=== PATIENT | female | born 2000 | race Caucasian/White ===

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

== ENCOUNTER 2019-08-06 13:49 | Emergency (ER) | payer OTHER ==
--- NOTE | 2019-08-06 14:13 | ER Document Report ---
ED Medical Screen (RME) - General Chief Complaint: Vag Bleeding, +preg <12wks Stated Complaint: VAGINAL BLEEDING Time Seen by Provider: 08/06/19 14:09 Mode of Arrival: Ambulatory Information source: Patient Notes: 19-year-old female presented to ED for complaint of vaginal bleeding in early . She has been seen by INVESTIGATION OFFICER and had an ultrasound they told her she was about 5 weeks . Patient is alert oriented respirations regular nonlabored speaking in full sentences walks with even steady gait. She states she does have some mild cramping no nausea or vomiting she states her bleeding is not severe but it does have blood clots. I have greeted and performed a rapid initial assessment of this patient. A comprehensive ED assessment and evaluation of the patient, analysis of test results and completion of medical decision making process will be conducted by an additional ED providers. TRAVEL OUTSIDE OF THE [place] IN LAST 30 DAYS: No - Related Data Allergies/Adverse Reactions: No Known Allergies Allergy (Verified 12/10/18 11:32) Past Medical History Pulmonary Medical History: Denies: Hx Asthma, Hx Bronchitis Renal/ Medical History: Denies: Hx Peritoneal Dialysis Musculoskeltal Medical History: Denies Hx Arthritis Psychiatric Medical History: Comment Only: Hx Depression - anxiety Past Surgical History: Reports: Hx Appendectomy - 08/17/18, Hx Tonsillectomy - Immunizations Hx Diphtheria, Pertussis, Tetanus Vaccination: No Physical Exam - Vital signs Vitals: Temp Pulse Resp BP Pulse Ox 98.2 F 106 H 20 133/67 H 100 08/06/19 13:58 08/06/19 13:58 08/06/19 13:58 08/06/19 13:58 08/06/19 13:58 Course - Vital Signs Vital signs: Temp Pulse Resp BP Pulse Ox 98.2 F 106 H 20 133/67 H 100 08/06/19 13:58 08/06/19 13:58 08/06/19 13:58 08/06/19 13:58 08/06/19 13:58
[2019-08-06 14:48] LABS: ABSOLUTE LYMPHOCYTES (AUTO) 1.4 10^3/uL (0.5-4.7); ABSOLUTE MONOCYTES (AUTO) 0.7 10^3/uL (0.1-1.4); ABSOLUTE NEUT (AUTO) 3.2 10^3/uL (1.7-8.2); BASOPHILS % (AUTO) 0.5 % (0-2); EOSINOPHILS % (AUTO) 0.4 % (0-6); HEMOGLOBIN 14.5 g/dL (12.0-15.5); LYMPHOCYTES % (AUTO) 26.4 % (13-45); MEAN CORPUSCULAR HEMOGLOBIN 32.9 pg (27.0-33.4); MEAN CORPUSCULAR HGB CONC 34.4 g/dL (32.0-36.0); MEAN CORPUSCULAR VOLUME 96 fl (80-97); MONOCYTES % (AUTO) 12.8 % (3-13); PLATELET COUNT 263 10^3/uL (150-450); RED BLOOD COUNT 4.39 10^6/uL (3.72-5.28); RED CELL DISTRIBUTION WIDTH 12.2 % (11.5-14.0); SEGMENTED NEUTROPHILS % (AUTO) 59.9 % (42-78); TOTAL CELLS COUNTED % (AUTO) 100 %; WHITE BLOOD COUNT 5.4 10^3/uL (4.0-10.5)
[2019-08-06 14:52] LABS: APPEARANCE,URINE SLIGHTLY-CLOUDY; BILIRUBIN,URINE NEGATIVE (NEGATIVE); COLOR,URINE YELLOW; GLUCOSE, URINE NEGATIVE (NEGATIVE); KETONES,URINE NEGATIVE (NEGATIVE); LEUKOCYTE ESTERASE,URINE NEGATIVE (NEGATIVE); NITRITE,URINE NEGATIVE (NEGATIVE); PROTEIN,URINE NEGATIVE (NEGATIVE); URINE SPECIFIC GRAVITY 1.027; UROBILINOGEN,URINE NEGATIVE mg/dL (<2.0)
[2019-08-06 15:14] LABS: ALBUMIN 4.5 g/dL (3.5-5.0); ALKALINE PHOSPHATASE 70 U/L (38-126); ANION GAP 7 (5-19); ASPARTATE AMINO TRANSFERASE 26 U/L (14-36); BILIRUBIN,TOTAL 0.7 mg/dL (0.2-1.3); BLOOD UREA NITROGEN 12 mg/dL (7-20); CALCIUM 9.3 mg/dL (8.4-10.2); CARBON DIOXIDE 27 mmol/L (22-30); CHLORIDE 104 mmol/L (98-107); GLUCOSE 84 mg/dL (75-110); TOTAL PROTEIN 7.4 g/dL (6.3-8.2)
--- NOTE | 2019-08-06 15:23 | ER Document Report ---
ED General - General Chief Complaint: Vag Bleeding, +preg <12wks Stated Complaint: VAGINAL BLEEDING Time Seen by Provider: 08/06/19 14:09 Mode of Arrival: Ambulatory TRAVEL OUTSIDE OF THE [place] IN LAST 30 DAYS: No - HPI Notes: Patient is a 19-year-old female G1, P0 approximately 6 weeks who presents complaining of vaginal bleeding that began today with occ pelvic crampi ng. Patient states that she did have an ultrasound performed recently and was told that she was 5 weeks by [employer]. She is otherwise able to eat and drink without difficulty. She is urinating normally and having normal bowel movements. No other vaginal odor or discharge. Denies drug allergies. She currently does not have any pain or discomfort. Denies any headache, fever, URI, sore throat, chest pain, palpitations, syncope, cough, shortness of breath, wheeze, dyspnea, abdominal pain, nausea/vomiting/diarrhea, urinary retention, dysuria, hematuria, or rash. - Related Data Allergies/Adverse Reactions: No Known Allergies Allergy (Verified 12/10/18 11:32) Past Medical History - General Information source: Patient - Social History Smoking Status: Unknown if Ever Smoked Chew tobacco use (# tins/day): No Frequency of alcohol use: None Drug Abuse: None Family History: Reviewed & Not Pertinent Patient has suicidal ideation: No Patient has homicidal ideation: No Pulmonary Medical History: Denies: Hx Asthma, Hx Bronchitis Renal/ Medical History: Denies: Hx Peritoneal Dialysis Musculoskeletal Medical History: Denies Hx Arthritis Psychiatric Medical History: Comment Only: Hx Depression - anxiety Past Surgical History: Reports: Hx Appendectomy - 08/17/18, Hx Tonsillectomy - Immunizations Hx Diphtheria, Pertussis, Tetanus Vaccination: No Review of Systems - Review of Systems -: Yes All other systems reviewed and negative Physical Exam - Vital signs Vitals: Temp Pulse Resp BP Pulse Ox 98.2 F 106 H 20 133/67 H 100 08/06/19 13:58 08/06/19 13:58 08/06/19 13:58 08/06/19 13:58 08/06/19 13:58 - Notes Notes: PHYSICAL EXAMINATION: GENERAL: Well-appearing, well-nourished and in no acute distress. HEAD: Atraumatic, normocephalic. EYES: Pupils equal round and reactive to light, extraocular movements intact, sclera anicteric, conjunctiva are normal. ENT: Nares patent and without discharge. oropharynx clear without exudates. No tonsilar hypertrophy or erythema. Moist mucous membranes. NECK: Normal range of motion, supple without lymphadenopathy LUNGS: Breath sounds clear to auscultation bilaterally and equal. No wheezes rales or rhonchi. HEART: Regular rate and rhythm without murmurs, rubs, gallops. ABDOMEN: Soft, nontender, nondistended abdomen. No guarding, no rebound. Normal bowel sounds present. No CVA tenderness bilaterally. Musculoskeletal: FROM to passive/active. Strength 5+/5. Extremities: No cyanosis, clubbing, or edema b/l. Peripheral pulses 2+. Capillary refill less than 3 seconds. NEUROLOGICAL: Cranial nerves grossly intact. Normal speech, normal gait. Normal sensory, motor exams PSYCH: Normal mood, normal affect. SKIN: Warm, Dry, normal turgor, no rashes or lesions noted. Course - Re-evaluation Re-evalutation: 08/06/19 16:16 Patient is an afebrile, well-hydrated, 19-year-old female who presents to the ED with bleeding in early and possible early intrauterine . Vitals are acceptable without any significant tachycardia, tachypnea, or hypoxia. PE is otherwise unremarkable. CBC, CMP unremarkable for acute pathology. HCG at 6499. See TVUS. UA unremarkable. Patient is nontoxic- appearing is tolerating p.o. without any difficulties. No other labs or imaging warranted at this time based on H&P. Low suspicion/risk for acute appendicitis, bowel obstruction, acute cholecystitis, acute cholangitis, perforated diverticulitis, incarcerated hernia, pancreatitis, perforated ulcer, peritonitis, sepsis, pelvic inflammatory disease, ectopic , tubo-ovar shonda abscess, ovarian torsion, or other systemic emergent condition at this time. Patient is aware that her condition can change from initial presentation and she needs to monitor symptoms closely and seek medical attention if any acute changes. Recheck HCG in 2-3 days, may need repeat US next week as well. Conservative measures otherwise for symptoms. Recheck with your PCM/OBGYN in 3- 5 days. Return to the ED with any worsening/concerning symptoms otherwise as reviewed in discharge. Patient is in agreement. - Vital Signs Vital signs: Temp Pulse Resp BP Pulse Ox 98.2 F 106 H 20 133/67 H 100 08/06/19 13:58 08/06/19 13:58 08/06/19 13:58 08/06/19 13:58 08/06/19 13:58 - Laboratory Result Diagrams: 08/06/19 14:30 08/06/19 14:30 Laboratory results interpreted by me: 08/06/19 08/06/19 14:30 14:30 Beta HCG, Quant 6499.70 H Urine Blood LARGE H Urine Ascorbic Acid 20 H Discharge - Discharge Clinical Impression: Bleeding in early Condition: Stable Disposition: HOME, SELF-CARE Additional Instructions: You should have your hormone level rechecked in 2 to 3 days. Consider repeat imaging in 7 to 10 days. This can be done with your OBGYN or the health department. Maintain fluid intake Proper hygienic technique Keep the skin clean Tylenol/ibuprofen as needed F/u with your PCM/OBGYN in 3-5 days for a recheck Return to the ED with any development of ROMAN/fever, trouble with vision, eye redness, worsening pain, urethral discharge, urinary retention, blood in the urine, flank pain, abdominal pain, n/v, Chest Pain, shortness of breath, joint pains, trouble breathing, or any other worsening/concerning symptoms as needed otherwise. Forms: Elevated Blood Pressure, Follow-Up Laboratory Testing [facility]NO [facility] - Follow up as needed [facility] [Provider Group] - Follow up as needed
--- NOTE | 2019-08-06 16:14 | RADIOLOGY REPORT (SQ) ---
EXAM DESCRIPTION: U/S OB TRANSVAGINAL W/O DOP COMPLETED DATE/TIME: 08/06/2019 3:12 pm REASON FOR STUDY: vaginal bleeding COMPARISON: None. TECHNIQUE: Transvaginal static and realtime grayscale images acquired of the pelvis. Additional emmanuel cted spectral and color Doppler images recorded. All images stored on PACs. bHCG: Not available. CLINICAL AGE: 10 weeks LIMITATIONS: None. FINDINGS: UTERUS: No masses. No anomalies. GESTATIONAL SAC: Normal shape. YOLK SAC: Yes. POLE: None present. RIGHT ADNEXA: Normal ovary with normal vascular flow. No adnexal free fluid. No adnexal masses. LEFT ADNEXA: Normal ovary with normal vascular flow. No adnexal free fluid. No adnexal masses. FREE FLUID: None. OTHER: No other significant finding. IMPRESSION: POSSIBLE EARLY INTRAUTERINE . BHCG LEVEL NOT AVAILABLE FOR CORRELATION WITH US FINDINGS. CONSIDER F/U BHCG AND/OR ULTRASOUND FOR VERIFICATION AND TO EXCLUDE ECTOPIC . Trimester of : First trimester - 0 to 13 weeks. TECHNICAL DOCUMENTATION: JOB ID: [id number] [employer]- All Rights Reserved Reading location - IP/workstation name: [email or web address]
[2019-08-06 16:48] VITALS: BP 100/62
== END 2019-08-06 16:46 | disposition home or self-care (01) ==
LOC: ER 13:49
DX: O20.9 Hemorrhage in early pregnancy, unspecified (principal); Z3A.01 Less than 8 weeks gestation of pregnancy
CPT/HCPCS: 36415; 76817; 80053; 81001; 84702; 85025; 86900; 86901; 99284

== ENCOUNTER 2019-08-07 17:33 | Emergency (ER) | payer OTHER ==
[2019-08-07 18:35] VITALS: BP 144/83
== END 2019-08-07 19:45 | disposition left against medical advice (07) ==
LOC: ER 17:33
DX: Z53.21 Procedure and treatment not carried out due to patient leaving prior to being seen by health care provider (principal); N93.9 Abnormal uterine and vaginal bleeding, unspecified

== ENCOUNTER → 2019-11-15 | Outpatient (CLI) | payer MEDICAID ==
--- NOTE | 2019-11-15 14:43 | RADIOLOGY REPORT (SQ) ---
EXAM DESCRIPTION: U/S [id number] TRNABD 1GES W/ODOP COMPLETED DATE/TIME: 11/15/2019 2:23 pm REASON FOR STUDY: Z34.81 ENCOUNTER FOR SUPRVSN OF NORMAL , FIRST TRIMESTER Z34.81 ENCOUNTE R FOR SUPRVSN OF NORMAL , FIRST TRIM COMPARISON: 08/06/2019 TECHNIQUE: Transvaginal static and realtime grayscale images acquired of the pelvis. Additional emmanuel cted spectral and color Doppler images recorded. All images stored on PACs. bHCG: Not available. CLINICAL DATES: LMP 09/12/2019. 9 weeks 1 day. LIMITATIONS: None. FINDINGS: FETUS: Single Living intrauterine . ULTRASOUND EGA: 6 weeks 6 days ULTRASOUND KOURTNEY: 07/04/2020 EFW: Not applicable less than 20 weeks. CRL: 0.85 cm FHR: 133 beats per minute. SURVEY: No visualized anomalies. AMNIOTIC FLUID: Adequate amount. PLACENTA: Not yet developed due to early gestation. SUBCHORIONIC BLEED: Yes SIZE OF BLEED: 1.3 x 0.7 x 0.3 cm UTERUS: No masses. No anomalies. CERVICAL LENGTH: 1.7 cm Closed. RIGHT ADNEXA: Normal ovary with normal vascular flow. 2.4 x 1.8 x 1.6 cm No adnexal free fluid. No adnexal masses. LEFT ADNEXA: Normal ovary with normal vascular flow. 3.7 x 3.6 x 1.9 cm No adnexal free fluid. No adnexal masses. FREE FLUID: Trace OTHER: No other significant finding. IMPRESSION: LIVING INTRAUTERINE . EGA 6 weeks 6 days. Trimester of : First trimester - 0 to 13 weeks. TECHNICAL DOCUMENTATION: JOB ID: [id number]- All Rights Reserved rev-03/18 Reading location - IP/workstation name: [email or web address]
== END ==
LOC: RAD 13:44
PROVIDERS: ATTEND Midwife
DX: Z34.81 Encounter for supervision of other normal pregnancy, first trimester (principal)
CPT/HCPCS: 76801

== ENCOUNTER 2020-06-20 15:05 | Outpatient (CLI) | payer MEDICAID ==
[2020-06-20 16:20] LABS: APPEARANCE,URINE SLIGHTLY-CLOUDY; BILIRUBIN,URINE NEGATIVE (NEGATIVE); COLOR,URINE STRAW; GLUCOSE, URINE NEGATIVE (NEGATIVE); KETONES,URINE NEGATIVE (NEGATIVE); LEUKOCYTE ESTERASE,URINE NEGATIVE (NEGATIVE); NITRITE,URINE NEGATIVE (NEGATIVE); PROTEIN,URINE NEGATIVE (NEGATIVE); URINE SPECIFIC GRAVITY 1.005; UROBILINOGEN,URINE NEGATIVE mg/dL (<2.0)
[2020-06-20 16:37] LABS: URINE AMPHETAMINES SCREEN NEGATIVE; URINE BARBITURATES SCREEN NEGATIVE; URINE BENZODIAZEPINES SCREEN NEGATIVE; URINE COCAINE SCREEN NEGATIVE; URINE MARIJUANA (THC) SCREEN NEGATIVE; URINE METHADONE SCREEN NEGATIVE; URINE PHENCYCLIDINE SCREEN NEGATIVE
--- NOTE | 2020-06-20 19:35 | Non Stress Test Report ---
Non Stress Test Datetime Report Generated by CPN: 06/20/2020 19:34 DEMOGRAPHIC EGA NST: 38.0 INDICATION Indication for Study (NST) Other: IUP at 38.0; Not in Labor VITAL SIGNS Temperature - NST: 98.2 Pulse - NST: 100 RESP - NST: 18 NBPSYS NST: 119 NBPDIA NST: 66 URINE RESULTS Urine Ketones - NST: Positive MONITORING Monitor Explained: Monitor Explained; Test Explained; Patient Verbalized Understanding Time on Monitor: 06/20/2020 15:52 Time off Monitor: 06/20/2020 16:47 NST Duration: 55 NST INTERVENTIONS NST Interventions: PO Hydration Physician Notified NST: P. Correa, CNM BABY A: [id number] BABY A Movement : Present Contraction Frequency : x1 FHR Baseline : 125 Accelerations : 15X15 Decelerations : None Variability : Moderate 6-25bpm NST Review: Meets Criteria for Reactive NST NST Review and Verified By : Kaylie Camp RNC NST Results: Reactive NST REPORT Report Trigger: Send Report
== END 2020-06-20 16:55 | disposition home or self-care (01) ==
LOC: LC 15:05
PROVIDERS: ATTEND Obstetrics & Gynecology Gynecology
DX: O47.1 False labor at or after 37 completed weeks of gestation (principal); Z3A.38 38 weeks gestation of pregnancy
CPT/HCPCS: 59025; 80307; 81005; 84112

== ENCOUNTER 2020-07-01 09:20 | Inpatient (IN) | payer MEDICAID ==
[2020-07-01 10:13] LABS: APPEARANCE,URINE CLEAR; BILIRUBIN,URINE NEGATIVE (NEGATIVE); COLOR,URINE YELLOW; GLUCOSE, URINE NEGATIVE (NEGATIVE); KETONES,URINE NEGATIVE (NEGATIVE); LEUKOCYTE ESTERASE,URINE NEGATIVE (NEGATIVE); NITRITE,URINE NEGATIVE (NEGATIVE); PROTEIN,URINE NEGATIVE (NEGATIVE); URINE SPECIFIC GRAVITY 1.015; UROBILINOGEN,URINE NEGATIVE mg/dL (<2.0)
--- NOTE | 2020-07-01 10:19 | Admission Physical ---
Datetime Report Generated by CPN: 07/01/2020 10:18 CURRENT ADMISSION Chief Complaint: Suspected Ruptured Membranes Admit Impression : Term, Intrauterine ; Ruptured Membranes Admit Plan: Admit to Unit; Initiate Labor Protocol ALLERGIES Medication Allergies: No Medication Allergies: No Known Allergies (07/01/2020) Latex: No Latex Allergies OBSTETRICAL HISTORY EDC: 07/04/2020 00:00 : 2 Para: 0 Term: 0 : 0 SAB: 1 IAB: 0 Livin PHYSICAL EXAM General: Normal HEENT: Normal Neurologic: Normal Thyroid: Normal Heart: Normal Lungs: Normal Breast: Normal Back: Normal Abdomen: Normal Genitourinary Exam: Normal Extremities: Normal DTRs: Normal Pelvic Type: Adequate Vital Signs: Reviewed; Within Normal Limits MEMBRANES Membranes: Ruptured Amniotic Fluid Color: Clear FETUS A EGA: 39.4 Monitoring: External US FHR- Baseline: 130 Variability: Moderate 6-25bpm Accelerations: 15X15 Decelerations: None FHR Category: Category I Admit Comment: at 39.4 wks presents c/o SROM this morning. +Actiprom result. GBS negative. Pt doing well, remains comfortable with irregular contractions. Plan to admit to unit, pt may ambulate for an hour or so, plan of care reviewed w/ patient. If no cervical change is made, then may augment with Pitocin. EFW via [place] . Attending MD today is Dr Rosales. INFORMED CONSENT Assignment: Meeta Rosales MD Signature: with User ID: [email or web address] : with User ID: Bailey
[2020-07-01] MEDS ORDERED: RINGERS SOLUTION,LACTATED 1,000 ML IV ONE (10:21)
[2020-07-01] MEDS ORDERED: RINGERS SOLUTION,LACTATED 1,000 ML IV PRN (10:21)
[2020-07-01 10:36] LABS: URINE AMPHETAMINES SCREEN NEGATIVE; URINE BARBITURATES SCREEN NEGATIVE; URINE BENZODIAZEPINES SCREEN NEGATIVE; URINE COCAINE SCREEN NEGATIVE; URINE MARIJUANA (THC) SCREEN NEGATIVE; URINE METHADONE SCREEN NEGATIVE; URINE PHENCYCLIDINE SCREEN NEGATIVE
[2020-07-01 11:04] LABS: ABSOLUTE LYMPHOCYTES (AUTO) 1.4 10^3/uL (0.5-4.7); ABSOLUTE MONOCYTES (AUTO) 1.3 10^3/uL (0.1-1.4); ABSOLUTE NEUT (AUTO) 7.7 10^3/uL (1.7-8.2); BASOPHILS % (AUTO) 0.3 % (0-2); EOSINOPHILS % (AUTO) 0.2 % (0-6); HEMATOCRIT 35.4 % (36.0-47.0); HEMOGLOBIN 12.2 g/dL (12.0-15.5); LYMPHOCYTES % (AUTO) 13.5 % (13-45); MEAN CORPUSCULAR HEMOGLOBIN 30.7 pg (27.0-33.4); MEAN CORPUSCULAR HGB CONC 34.4 g/dL (32.0-36.0); MEAN CORPUSCULAR VOLUME 89 fl (80-97); MONOCYTES % (AUTO) 12.1 % (3-13); PLATELET COUNT 281 10^3/uL (150-450); RED BLOOD COUNT 3.97 10^6/uL (3.72-5.28); SEGMENTED NEUTROPHILS % (AUTO) 73.9 % (42-78); TOTAL CELLS COUNTED % (AUTO) 100 %; WHITE BLOOD COUNT 10.5 10^3/uL (4.0-10.5)
[2020-07-01] MEDS ORDERED: MAG HYDROX/AL HYDROX/SIMETH SUSP 30 ML UDCUP PO ONE (12:02)
[2020-07-01] MEDS ORDERED: MAG HYDROX/AL HYDROX/SIMETH SUSP 30 ML UDCUP ONE (12:03)
[2020-07-01] MEDS ORDERED: LIDOCAINE 1% INJ-PF (10 MG/ML) 30 ML SDV ONE (12:21)
[2020-07-01] MEDS ORDERED: OXYTOCIN/0.9 % SODIUM CHLORIDE 30 UNIT/500 ML RTUINJ ONE (12:21)
[2020-07-01] MEDS ORDERED: MISOPROSTOL 0.2 MG TABLET ONE (12:21)
[2020-07-01] MEDS ORDERED: OXYTOCIN 10 UNIT/ML VIAL ONE (12:21)
[2020-07-01] MEDS ORDERED: OXYTOCIN/0.9 % SODIUM CHLORIDE 30 UNIT/500 ML RTUINJ IV PRN (12:24)
--- NOTE | 2020-07-01 12:59 | L&D Progress Notes ---
PROGRESS NOTES Datetime Report Generated by CPN: 07/01/2020 12:58 PROGRESS NOTE Impression: Reassuring Heart Rate Plan: Augmentation Vital Signs : Reviewed; Within Normal Limits Comment: After ambulating for an hour, contraction pattern remains mild and irregular. Plan to start Pitocin to augment contractions. Pt also w/ a hx of 60 lb weight gain this . Reviewed with patient her increased risk of a shoulder dystocia and possible of needing a section for delivery. Questions answered and pt did verbalize understanding of the risk. Pt may have an epidural if she desires LAST VAGINAL EXAM-NURSING Nursing Exam Dilitation: 1.0 Nursing Exam Effacement: 50 Nursing Exam Station: -3 MEMBRANES Membranes: Ruptured Amniotic Fluid Color: Clear FETUS A FHR - Baseline: 135 Monitoring: External US FHR Category: Category I SIGNATURE SIGNATURE: [id number];[id number] Assignment: Meeta Rosales MD Signature: with User ID: [email or web address] : with User ID: [email or web address]
[2020-07-01] MEDS ORDERED: NALBUPHINE HCL INJ 10 MG/1 ML AMPULE INJ ONE (16:22)
[2020-07-01] MEDS ORDERED: NALBUPHINE HCL INJ 10 MG/1 ML AMPULE ONE (16:22)
[2020-07-01] MEDS ORDERED: PROMETHAZINE HCL INJ 25 MG/1 ML VIAL IV ONE (16:22)
[2020-07-01] MEDS ORDERED: PROMETHAZINE HCL INJ 25 MG/1 ML VIAL ONE (16:22)
--- NOTE | 2020-07-01 16:26 | L&D Progress Notes ---
PROGRESS NOTES Datetime Report Generated by CPN: 07/01/2020 16:26 PROGRESS NOTE Impression: Reassuring Heart Rate Procedures: Sterile Vag Exam Procedures- Other: AROM of forbag Plan: Continue Present Management; Augmentation Vital Signs : Reviewed; Within Normal Limits Comment: Pitocin infusing, pt now becoming uncomfortable, VE loose 1/90/-1 w/ palpable forbag. AROM of forbag. Moderate blood-tinged clear fluid. Pt may have IV pain medication, then plan epidural w/ further cervical change. Attending MD is Dr Rosales LAST VAGINAL EXAM-NURSING Nursing Exam Dilitation: 1.0 Nursing Exam Effacement: 90 Nursing Exam Station: -1 Nursing Exam Contractions: Switching from EFM to WILIAM MEMBRANES Membranes: Ruptured Amniotic Fluid Color: Clear FETUS A FHR - Baseline: 130 Monitoring: External US Variability: Moderate 6-25bpm Accelerations: 15X15 Decelerations: None FHR Category: Category I SIGNATURE SIGNATURE: [id number];[id number] Assignment: Meeta Rosales MD Signature: with User ID: Bailey : with User ID: Bailey
[2020-07-01] MEDS ORDERED: FENTANYL/BUPIVACAINE/NS/PF 300 MCG/150 ML RTUINJ EPI ONE (17:04)
[2020-07-01] MEDS ORDERED: EPHEDRINE SULFATE INJ 50 MG/1 ML AMPULE ONE (17:04)
[2020-07-01] MEDS ORDERED: ROPIVACAINE HCL 0.2% INJ/PF (2 MG/ML) 20 ML SDV ONE (17:04)
[2020-07-02] MEDS ORDERED: NA PHOS,M-B/NA PHOS,DI-BA (ADULT) 133 ML ENEMA PR PRN (01:13)
[2020-07-02] MEDS ORDERED: MEASLES,MUMPS&RUBELLA VACC/PF 0.5 ML VIAL SUBCUT PRN (01:13)
[2020-07-02] MEDS ORDERED: DIPH/PERTUSS(ACELL)/TETANUS VAC/PF 0.5 ML SYR (>=10YO) IM PRN (01:13)
[2020-07-02] MEDS ORDERED: PROMETHAZINE HCL 25 MG SUPP.RECT PR PRN (01:13)
[2020-07-02] MEDS ORDERED: PROMETHAZINE HCL INJ 25 MG/1 ML VIAL IV PRN (01:13)
[2020-07-02] MEDS ORDERED: ZOLPIDEM TARTRATE 5 MG TABLET PO PRN (01:13)
[2020-07-02] MEDS ORDERED: ACETAMINOPHEN WITH CODEINE #3 TABLET PO PRN (01:13)
[2020-07-02] MEDS ORDERED: OXYTOCIN/0.9 % SODIUM CHLORIDE 30 UNIT/500 ML RTUINJ IV PRN (01:13)
[2020-07-02] MEDS ORDERED: DIBUCAINE 1% OINTMENT 28 GM TP PRN (01:13)
[2020-07-02] MEDS ORDERED: BENZOCAINE/MENTHOL AEROSOL SPRAY 56 ML TOP PRN (01:13)
[2020-07-02] MEDS ORDERED: PSEUDOEPHEDRINE HCL 30 MG TABLET PO PRN (01:13)
[2020-07-02] MEDS ORDERED: ACETAMINOPHEN 650 MG SUPP.RECT PR PRN (01:13)
[2020-07-02] MEDS ORDERED: MAGNESIUM HYDROXIDE SUSP 30 ML UDCUP PO PRN (01:13)
[2020-07-02] MEDS ORDERED: DIPHENHYDRAMINE HCL 25 MG CAPSULE PO PRN (01:13)
[2020-07-02] MEDS ORDERED: GLYCERIN/WITCH HAZEL LEAF 1 EACH MED..WIPE TP PRN (01:13)
[2020-07-02] MEDS ORDERED: PROMETHAZINE HCL 25 MG TABLET PO PRN (01:13)
[2020-07-02] MEDS ORDERED: IBUPROFEN 800 MG TABLET ONE (01:43)
--- NOTE | 2020-07-02 02:15 | Delivery Summary ---
Del Sum A-C Datetime Report Generated by CPN: 07/02/2020 02:15 DELIVERY PERSONNEL DELIVERY PERSONNEL: [id number] Delivery Doctor:: Meeta Rosales MD Labor and Delivery Nurse:: Nisreen Ramirez RNwool tamper Nurse:: MADINA Rubio First Assistant/MARKET BASKET MAKER: iV Hornebonie, First Assistant/MARKET BASKET MAKER: Sasha Tobar, STEREO OPERATOR MATERNAL INFORMATION Delivery Anesthesia: Epidural Medications After Delivery: Pitocin 30 Units in 500ml NS/D5W Estimated Blood Loss (ml): 200 Delivery QBL: 200 Maternal Complications: None LABOR SUMMARY EDC: 07/04/2020 00:00 No. Babies in Womb: 1 Attempted: No Labor Anesthesia: Epidural LABOR INFORMATION Reason for Induction: Premature Rupture of Membranes Onset of Labor: 07/01/2020 19:25 Complete Dilatation: 07/01/2020 23:27 Oxytocin: Induction Group B Beta Strep: Negative Antibiotics # of Doses: n/a Name of Antibiotic Given: n/a Steroids Given: None Reason Steroids Not Administered: Not Applicable MEMBRANES Membranes Rupture Method: Spontaneous Rupture of Membranes: 07/01/2020 03:00 Length of Rupture (hr): 22.05 Amniotic Fluid Color: Clear Amniotic Fluid Amount: Small Amniotic Fluid Odor: Normal STAGES OF LABOR Stage 1 hr: 4 Stage 1 min: 2 Stage 2 hr: 1 Stage 2 min: 36 Stage 3 hr: 0 Stage 3 min: 4 Total Time in Labor hr: 5 Total Time in Labor min: 42 VAGINAL DELIVERY Episiotomy: None Laceration #1: None Laceration Extension #1: N/A Laceration Repair: Not Applicable Sponge Count Correct: Yes Sharps Count Correct: Yes CSECTION DELIVERY Primary Indication: N/A Secondary Indication: N/A CSection Incidence: N/A Labor: N/A Elective: N/A CSection Incision: N/A BABY A INFORMATION Infant Delivery Date/Time: 07/02/2020 01:03 Method of Delivery: Vaginal Nurse Controlled Delivery: No Born in Route : No : N/A Forceps: N/A Vacuum Extraction: N/A Shoulder Dystocia : No PRESENTATION/POSITION BABY A Presentation: Cephalic Cephalic Presentation: Vertex Vertex Position: Left Occipital Anterior Breech Presentation: N/A PLACENTA INFORMATION BABY A Placenta Delivery Time : 07/02/2020 01:07 Placenta Method of Delivery: Spontaneous Placenta Status: Delivered SCORES BABY A Heart Rate 1 min: >100 bpm Resp Effort 1 min: Good Cry Reflex Irritability 1 min: Cough or Sneeze or Pulls Away Muscle Tone 1 min: Active Motion Color 1 min: Body [place], Extremities Blue Resuscitation Effort 1 min: Tactile Stimulation SCORE 1 MIN: 9 Heart Rate 5 min: >100 bpm Resp Effort 5 min: Good Cry Reflex Irritability 5 min: Cough or Sneeze or Pulls Away Muscle Tone 5 min: Active Motion Color 5 min: Body [place], Extremities Blue Resuscitation Effort 5 min: Tactile Stimulation SCORE 5 MIN: 9 INFANT INFORMATION BABY A Gestational Age at Delivery: 39.0 Gestational Status: Full Term- 39- 40.6 Weeks Infant Outcome : Liveborn Condition : Stable Sex: Male IDENTIFICATION BABY A Infant Verification Date/Time: 07/02/2020 01:08 ID Band Number: [id number] Mother's Name Verified: Yes RN Verifying Infant: Mirna Andrew, JORJE Additional Verifying Personnel: Margot Luis RN WEIGHT/LENGTH BABY A Birthweight (gm): 3920 Weight (lb): 8 Infant Weight (oz): 10 Infant Length (in): 20.00 Length (cm): 50.80 CORD INFORMATION BABY A No. Cord Vessels: 3 Nuchal Cord : N/A Cord Blood Taken: Yes-For Eval (Mom's Blood Type - or O+) Infant Suction: Mouth; Nose ASSESSMENT BABY A Infant Complications: None Physical Findings at Delivery: Molding of the Head Respirations: Appears Normal Instructor Traffic Safety/ALS Called : No Care By: D Bellavance RN Transferred To: Remains with Mother BABY B INFORMATION : N/A SIGNATURES Signature: with User ID: Alexandria
--- NOTE | 2020-07-02 02:52 | Birth Certificate Data ---
Cert Data Datetime Report Generated by CPN: 07/02/2020 02:52 CERTIFICATE DATA 47a. Care: Yes (06/20/2020 15:56:Debbi Dunn RN) 48a. Number of Prev Live Births: 0 (06/20/2020 15:56:Debbi Dunn RN) 48b. Now Livin (06/20/2020 15:56:Debbi Dunn RN) 48c. Live Births Now : 0 (06/20/2020 15:56: system process) 48e. Losses: 1 (06/20/2020 15:56:Debbi Dunn RN) RISK FACTORS IN THIS 49a. Diabetes: No (06/20/2020 15:56:Debbi Dunn RN) 49b. Hypertension: No (06/20/2020 15:56:Debbi Dunn RN) 49c. Previous Births: 0 (06/20/2020 15:56:Debbi Dunn RN) 49d. Stillborns: No (06/20/2020 15:56:Debbi Dunn RN) 49d. IUGR: No (06/20/2020 15:56:Debbi Dunn RN) 49e. Infertility Treatment: No (06/20/2020 15:56:Debbi Dunn RN) 49f. Previous Cesareans: 0 (06/20/2020 15:56:Debbi Dunn RN) Mother's Height 50b. Height Inches: 66 (07/01/2020 10:14:QS system process) Mother's Weight 51b. Weight at Delivery (lbs): 196 (07/01/2020 10:14:QS system process) 52. Dt Last Normal Menses Began: 06/17/2020 00:00 (06/20/2020 15:56:Debbi Dunn RN) Infections Present/Treated 53a. Gonorrhea: No (06/20/2020 15:56:Debbi Dunn RN) Results this Hospital Visit : Negative (06/20/2020 15:56:Teresa Varela RN) 53b. Syphilis: No (06/20/2020 15:56:Debbi Dunn RN) 53c. Chlamydia: No (06/20/2020 15:56:Debbi Dunn RN) Results this Hospital Visit: Negative (06/20/2020 15:56:Teresa Varela RN) 53d. Hepatitis B: No (06/20/2020 15:56:Debbi Dunn RN) Results this Hospital Visit: Negative (06/20/2020 15:56:Teresa Varela RN) 53e. Hepatitis C: Negative (06/20/2020 15:56:Debbi Dunn RN) 53h. Mother Tested for HBsAG: Yes (06/20/2020 15:56:Debbi Dunn RN) 53i. Date Tested: 11/17/2019 00:00 (06/20/2020 15:56:Debbi Dunn RN) 53j. Test Result: Negative (06/20/2020 15:56:Teresa Varela RN) Obstetric Procedures 54a, b, c. Obstetric Procedures: Ultrasound (06/20/2020 15:56:[facility] ) Cigarette Smoking 55a. 3 Months Before Preg - Ci (06/20/2020 15:56:Debbi Mona RN) 55b. 1st Trimester of Preg- Ci (06/20/2020 15:56:Debbi Paulaustdannielle RN) 55c. 2nd Trimester of Preg- Ci [facility] 55d. 3rd Trimester of Preg- Ci ([facility]/20/2020 [facility]) Onset of Labor 56a. PROM >12 Hrs: 22.05 (07/01/2020 10:39:QS system process) 56b. Precipitous Labor <3 Hrs: 5 (06/20/2020 15:56:QS system process) 56c. Prolonged Labor > 20 Hrs: 5 (06/20/2020 15:56:QS system process) 57a. Induction of Labor: Induction (06/20/2020 15:56:Willy Morales RN) 57c. Non-Vertex Presentation A: Vertex (06/20/2020 15:56:Nisreen Ramirez RN) 57d. Steroids - Lung Mat: None (06/20/2020 15:56:Debbi Dunn RN) 57d. Steroids - Lung Mat: Not Applicable (06/20/2020 15:56:Debbi Dunn RN) 57f. Mat [place] or Temp >100.4: 98.9 (06/20/2020 15:56:Willy Morales RN) 57g. Moderate/Heavy Meconium: Clear (07/01/2020 16:20:Debbi Dunn RN) 57h. Intolerance of Labor: N/A (06/20/2020 15:56:Willy Morales RN) : N/A (06/20/2020 15:56:Willy Morales RN) 57i. Epidural/Spinal Anesthesia: Epidural (06/20/2020 15:56:Willy Morales RN) Method of Delivery 58a. Forceps - Unsuccessful A: N/A (06/20/2020 15:56:Nisreen Ramirez RN) 58b. Vacuum - Unsuccessful A: N/A (06/20/2020 15:56:Nisreen Ramirez RN) 58c. Presentation at 58c. Presentation at - A : Vertex (06/20/2020 15:56:Nisreen Ramirez RN) 58c. Presentation at - A : N/A (06/20/2020 15:56:Nisreen Ramirez RN) 58c. Presentation at - A : Cephalic (06/20/2020 15:56:Nisreen Ramirez RN) Final Route and Method of Del 58d. Baby A Route/Delivery: Vaginal (07/02/2020 01:03:Nisreen Ramirez RN) 58e. Trial of Labor Attempted: No (06/20/2020 15:56:Debbi Dunn RN) 58e. Trial of Labor Attempted A: N/A (06/20/2020 15:56:Debbi Dunn RN) 58e. Trial of Labor Attempted B: N/A (06/20/2020 15:56:Debbi Dunn RN) Maternal Morbidity 59b. 3rd or 4th Degree Lacs: None (06/20/2020 15:56:Meeta Rosales MD ([facility] Birthweight Baby A: 3920 (06/20/2020 15:56:Nisreen Ramirez RN) 60a. Pounds : 8 (06/20/2020 15:56:QS system process) 60b. Ounces: 10 (06/20/2020 15:56:QS system process) 61. GA at Delivery Baby A: 39.0 (06/20/2020 15:56:Nisreen Ramirez RN) : Full Term- 39- 40.6 Weeks (06/20/2020 15:56:QS system process) 62a. 5 Minute Baby A: 9 (06/20/2020 15:56:QS system process)
[2020-07-02] MEDS: IBUPROFEN 800 MG TABLET PO SCH ×3 (06:10→23:28)
[2020-07-02] MEDS: ACETAMINOPHEN WITH CODEINE #3 TABLET PO PRN ×2 (08:49→17:34)
--- NOTE | 2020-07-02 09:59 | PDOC PROGRESS REPORT ---
Subjective-OB Progress Note for:: 07/02/20 Subjective: Doing well, no c/o, voiding, scant lochia, breast feeding Physical Exam (OB) Vital Signs: Temp Pulse Resp BP Pulse Ox 97.7 F 86 17 119/67 98 07/02/20 07:59 07/02/20 07:59 07/02/20 07:59 07/02/20 07:59 07/02/20 07:59 Intake & Output 07/01/20 07/02/20 07/03/20 06:59 06:59 06:59 Intake Total 1000 Balance 1000 Weight 89.1 kg - PIH/Pre-Eclampsia DTR's: 2 + Clonus: Negative Headache: Absent Epigastric Pain: No Visual Changes: No - Maternal Morbidity 59. Maternal Morbidity (serious complications experinced by the mother associated with labor and delivery: None of the above - Lochia Lochia Amount: Scant < 10 ml Lochia Color: Rubra/Red - Abdomen Description: Soft, Round Hernia Present: No Fundal Description: Firm, Midline Fundal Height: u/u - u/2 Objective-Diagnostic Laboratory: 07/01/20 10:50 07/01/20 07/01/20 07/01/20 09:53 10:50 10:50 WBC 10.5 RBC 3.97 Hgb 12.2 Hct 35.4 L MCV 89 MCH 30.7 MCHC 34.4 RDW 13.0 Plt Count 281 Seg Neutrophils % 73.9 Urine Color YELLOW Urine Appearance CLEAR Urine pH 6.0 Ur Specific [place] 1.015 Urine Protein NEGATIVE Urine Glucose (UA) NEGATIVE Urine Ketones NEGATIVE Urine Blood MODERATE H Urine Nitrite NEGATIVE Ur Leukocyte Esterase NEGATIVE Blood Type O POSITIVE Antibody Screen NEGATIVE Assessment and Plan(PN) - Assessment and Plan (1) Asthma Qualifiers: Asthma complication type: unspecified Is this a current diagnosis for this admission?: Yes (2) Anxiety Is this a current diagnosis for this admission?: Yes (3) Vaginal delivery Is this a current diagnosis for this admission?: Yes - Time Spent with Patient Time with patient: Less than 15 minutes Medications reviewed and adjusted accordingly: Yes - Disposition Anticipated Discharge Disposition: Home, Self Care Anticipated Discharge Timeframe: within 24 hours
[2020-07-02] MEDS ORDERED: [UNRECOGNIZED DRUG - REMARK] PO SCH (10:00)
[2020-07-02 10:26] LABS: HEMOGLOBIN 10.7 g/dL (12.0-15.5); MEAN CORPUSCULAR HEMOGLOBIN 30.8 pg (27.0-33.4); MEAN CORPUSCULAR HGB CONC 34.6 g/dL (32.0-36.0); MEAN CORPUSCULAR VOLUME 89 fl (80-97); PLATELET COUNT 287 10^3/uL (150-450); RED BLOOD COUNT 3.49 10^6/uL (3.72-5.28); RED CELL DISTRIBUTION WIDTH 13.2 % (11.5-14.0)
[2020-07-02] MEDS: DOCUSATE SODIUM 100 MG CAPSULE PO SCH ×2 (10:50→17:25)
[2020-07-02] MEDS: FAMOTIDINE 20 MG TABLET PO SCH ×2 (10:50→23:28)
[2020-07-02] MEDS: FERROUS SULFATE 325 MG TABLET PO SCH ×2 (10:50→17:25)
[2020-07-02] MEDS: SENNOSIDES/DOCUSATE 8.6-50 MG 1 EACH TABLET PO SCH (10:50)
[2020-07-02] MEDS: PRENATAL VITAMIN W DHA CAPSULE PO SCH (10:51)
[2020-07-03] MEDS: IBUPROFEN 800 MG TABLET PO SCH ×3 (06:06→21:56)
[2020-07-03] MEDS: DOCUSATE SODIUM 100 MG CAPSULE PO SCH ×2 (10:04→18:39)
[2020-07-03] MEDS: FAMOTIDINE 20 MG TABLET PO SCH ×2 (10:04→21:56)
[2020-07-03] MEDS: PRENATAL VITAMIN W DHA CAPSULE PO SCH (10:04)
[2020-07-03] MEDS: SENNOSIDES/DOCUSATE 8.6-50 MG 1 EACH TABLET PO SCH (10:04)
[2020-07-03] MEDS: FERROUS SULFATE 325 MG TABLET PO SCH ×2 (10:04→18:39)
--- NOTE | 2020-07-03 12:19 | PDOC PROGRESS REPORT ---
Subjective-OB Progress Note for:: 07/03/20 Subjective: 20yo G2 now P1 s/p delivery day. Pt ambulating and voiding without difficulty, reports pain well controlled by medication no concerns today. Physical Exam (OB) Vital Signs: Temp Pulse Resp BP Pulse Ox 97.4 F 80 16 130/80 H 100 07/03/20 08:00 07/03/20 08:00 07/03/20 08:00 07/03/20 08:00 07/03/20 08:00 Intake & Output 07/02/20 07/03/20 07/04/20 06:59 06:59 06:59 Intake Total 1000 700 Balance 1000 700 Weight 89.1 kg - General General Appearance: Appears well In distress: None - PIH/Pre-Eclampsia DTR's: 2 + Clonus: Negative Headache: Absent Epigastric Pain: No Visual Changes: No - Maternal Morbidity 59. Maternal Morbidity (serious complications experinced by the mother associated with labor and delivery: None of the above - Episiotomy/Laceration Site Condition: N/A - Lochia Lochia Amount: Scant < 10 ml Lochia Color: Rubra/Red - Abdomen Description: Soft Hernia Present: No Fundal Description: Firm, Midline Fundal Height: u/u - u/2 - Respiratory Respiratory Status: No respiratory distress - Extremities Upper extremity: Normal inspection Lower extremities: Normal inspection - Neurological Cognition: Normal Orientation: AAOx4 - Psychological Associated symptoms: Normal affect, Normal mood Objective-Diagnostic Laboratory: 07/02/20 10:05 Assessment and Plan(PN) - Assessment and Plan (1) Acute blood loss anemia Is this a current diagnosis for this admission?: Yes Plan: increase dietary iron and FeSO4 bid (2) Anxiety Is this a current diagnosis for this admission?: Yes (3) Asthma Qualifiers: Asthma persistence: unspecified Asthma complication type: unspecified Is this a current diagnosis for this admission?: Yes Plan: delivered (4) Vaginal delivery Is this a current diagnosis for this admission?: Yes Plan: routine pp care - Time Spent with Patient Time with patient: Less than 15 minutes Medications reviewed and adjusted accordingly: Yes - Disposition Anticipated Discharge Disposition: Home, Self Care Anticipated Discharge Timeframe: within 24 hours
[2020-07-04] MEDS: IBUPROFEN 800 MG TABLET PO SCH (05:12)
[2020-07-04] MEDS: PRENATAL VITAMIN W DHA CAPSULE PO SCH (09:58)
[2020-07-04] MEDS: FAMOTIDINE 20 MG TABLET PO SCH (09:58)
[2020-07-04] MEDS: DOCUSATE SODIUM 100 MG CAPSULE PO SCH (09:58)
[2020-07-04] MEDS: FERROUS SULFATE 325 MG TABLET PO SCH (09:58)
[2020-07-04] MEDS: SENNOSIDES/DOCUSATE 8.6-50 MG 1 EACH TABLET PO SCH (09:58)
--- NOTE | 2020-07-04 10:35 | PDOC PROGRESS REPORT ---
Subjective-OB Progress Note for:: 07/04/20 Subjective: Ready for discharge. Physical Exam (OB) Vital Signs: Temp Pulse Resp BP Pulse Ox 97.4 F 77 20 143/86 H 98 07/03/20 20:07 07/03/20 20:07 07/03/20 20:07 07/03/20 20:07 07/03/20 20:07 Intake & Output 07/03/20 07/04/20 07/05/20 06:59 06:59 06:59 Intake Total 700 420 Balance 700 420 - PIH/Pre-Eclampsia DTR's: 2 + Clonus: Negative Headache: Absent Epigastric Pain: No Visual Changes: No - Maternal Morbidity 59. Maternal Morbidity (serious complications experinced by the mother associated with labor and delivery: None of the above - Lochia Lochia Amount: Scant < 10 ml Lochia Color: Rubra/Red - Abdomen Description: Soft Hernia Present: No Bowel Sounds: Normoactive Flatus Presence: Present Stool: Yes Fundal Description: Firm, Midline Fundal Height: u/u - u/2 Objective-Diagnostic Laboratory: 07/02/20 10:05 Assessment and Plan(PN) - Time Spent with Patient Time with patient: 15-25 minutes Medications reviewed and adjusted accordingly: Yes - Disposition Anticipated Discharge Disposition: Home, Self Care Anticipated Discharge Timeframe: within 24 hours
--- NOTE | 2020-07-04 10:41 | PDOC DISCHARGE SUMMARY ---
Impression - Admit/DC Date/PCP Admission Date/Primary Care Provider: 07/01/20 10:11 MEGHAN CABALLERO MD Discharge Date: 07/04/20 - Discharge Diagnosis (1) Acute blood loss anemia Is this a current diagnosis for this admission?: Yes (2) Anxiety Is this a current diagnosis for this admission?: Yes (3) Asthma Is this a current diagnosis for this admission?: Yes (4) Vaginal delivery Is this a current diagnosis for this admission?: Yes - Additional Information Resuscitation Status: Full Code Discharge Diet: Regular Discharge Activity: Activity As Tolerated, Balance Activity w/Rest, Pelvic Rest, Slowly Increase Activity, No tub bath Referrals: MEGHAN CABALLERO MD [Primary Care Provider] - Home Medications: Pnv No.103/Folic/Om3s/Fish Oil [ Gummies] 1 tab PO DAILY 07/01/20 HPI Gestational Age: 39 wks Reason(s) for Admission: PROM Procedures: Ultrasound Intrapartum Procedure(s): Spontaneous Vaginal Delivery Hospital Course 59. Maternal Morbidity (serious complications experinced by the mother associated with labor and delivery: None of the above Results Laboratory Results: WBC 19.0 10^3/uL (4.0-10.5) H 07/02/20 10:05 RBC 3.49 10^6/uL (3.72-5.28) L 07/02/20 10:05 Hgb 10.7 g/dL (12.0-15.5) L 07/02/20 10:05 Hct 31.0 % (36.0-47.0) L 07/02/20 10:05 MCV 89 fl (80-97) 07/02/20 10:05 MCH 30.8 pg (27.0-33.4) 07/02/20 10:05 MCHC 34.6 g/dL (32.0-36.0) 07/02/20 10:05 RDW 13.2 % (11.5-14.0) 07/02/20 10:05 Plt Count 287 10^3/uL (150-450) 07/02/20 10:05 Lymph % (Auto) 13.5 % (13-45) 07/01/20 10:50 Ramsey % (Auto) 12.1 % (3-13) 07/01/20 10:50 Eos % (Auto) 0.2 % (0-6) 07/01/20 10:50 Baso % (Auto) 0.3 % (0-2) 07/01/20 10:50 Absolute Neuts (auto) 7.7 10^3/uL (1.7-8.2) 07/01/20 10:50 Absolute Lymphs (auto) 1.4 10^3/uL (0.5-4.7) 07/01/20 10:50 Absolute Monos (auto) 1.3 10^3/uL (0.1-1.4) 07/01/20 10:50 Absolute Eos (auto) 0.0 10^3/uL (0.0-0.6) 07/01/20 10:50 Absolute Basos (auto) 0.0 10^3/uL (0.0-0.2) 07/01/20 10:50 Seg Neutrophils % 73.9 % (42-78) 07/01/20 10:50 Urine Color YELLOW 07/01/20 09:53 Urine Appearance CLEAR 07/01/20 09:53 Urine pH 6.0 (5.0-9.0) 07/01/20 09:53 Ur Specific [place] 1.015 07/01/20 09:53 Urine Protein NEGATIVE mg/dL (NEGATIVE) 07/01/20 09:53 Urine Glucose (UA) NEGATIVE mg/dL (NEGATIVE) 07/01/20 09:53 Urine Ketones NEGATIVE mg/dL (NEGATIVE) 07/01/20 09:53 Urine Blood MODERATE (NEGATIVE) H 07/01/20 09:53 Urine Nitrite NEGATIVE (NEGATIVE) 07/01/20 09:53 Urine Bilirubin NEGATIVE (NEGATIVE) 07/01/20 09:53 Urine Urobilinogen NEGATIVE mg/dL (<2.0) 07/01/20 09:53 Ur Leukocyte Esterase NEGATIVE (NEGATIVE) 07/01/20 09:53 Urine Ascorbic Acid NEGATIVE (NEGATIVE) 07/01/20 09:53 Membranes Rupture POSITIVE (NEGATIVE) H 07/01/20 09:53 Urine Opiates Screen NEGATIVE 07/01/20 09:53 Urine Methadone Screen NEGATIVE 07/01/20 09:53 Ur Barbiturates Screen NEGATIVE 07/01/20 09:53 Ur Phencyclidine Scrn NEGATIVE 07/01/20 09:53 Ur Amphetamines Screen NEGATIVE 07/01/20 09:53 U Benzodiazepines Scrn NEGATIVE 07/01/20 09:53 Urine Cocaine Screen NEGATIVE 07/01/20 09:53 U Marijuana (THC) Screen NEGATIVE 07/01/20 09:53 RPR NONREACTIVE (NONREACTIVE) 07/01/20 10:50 Blood Type O POSITIVE 07/01/20 10:50 Antibody Screen NEGATIVE 07/01/20 10:50 Plan Plan of Treatment: Follow up at [facility] in 4 wks or prn. Time Spent: Greater than 30 Minutes
[2020-07-04 11:37] LABS: HEMATOCRIT 34.3 % (36.0-47.0); HEMOGLOBIN 11.9 g/dL (12.0-15.5); MEAN CORPUSCULAR HEMOGLOBIN 30.7 pg (27.0-33.4); MEAN CORPUSCULAR HGB CONC 34.7 g/dL (32.0-36.0); MEAN CORPUSCULAR VOLUME 88 fl (80-97); PLATELET COUNT 389 10^3/uL (150-450); RED BLOOD COUNT 3.89 10^6/uL (3.72-5.28); RED CELL DISTRIBUTION WIDTH 13.5 % (11.5-14.0); WHITE BLOOD COUNT 10.3 10^3/uL (4.0-10.5)
[2020-07-04 12:15] VITALS: BP 130/80
== END 2020-07-04 13:10 | disposition home or self-care (01) | DRG 807 ==
LOC: LC 09:20 → LR 10:11 → 2S 07-02 03:56
PROVIDERS: ADMIT Obstetrics & Gynecology; ATTEND Obstetrics & Gynecology
PROC: 3E033VJ Introduction of Other Hormone into Peripheral Vein, Percutaneous Approach (ICD-10-PCS; 2020-07-01)
PROC: 10E0XZZ Delivery of Products of Conception, External Approach (ICD-10-PCS; principal; 2020-07-02)
DX: O42.92 Full-term premature rupture of membranes, unspecified as to length of time between rupture and onset of labor (principal); Z37.0 Single live birth; Z3A.39 39 weeks gestation of pregnancy; O99.02 Anemia complicating childbirth; O99.344 Other mental disorders complicating childbirth; O99.343 Other mental disorders complicating pregnancy, third trimester; J45.909 Unspecified asthma, uncomplicated
CPT/HCPCS: 1967; 36415; 80307; 81005; 84112; 85025; 85027; 86592; 86850; 86900; 86901; J2300; J2550; J2590; J2795; J3010; J3490